=== PATIENT | male | born 1945 | race Caucasian/White ===

== ENCOUNTER 2019-11-17 17:03 | Inpatient (IN) | payer MEDICARE, OTHER ==
[~2019-11-17] VITALS: Ht 162.6 cm; Wt 71.7 kg
[~2019-11-17 17:03] MED LIST: ASPIRIN-LOW81 MG ORAL; ATORVASTATIN CA80 MG ORAL; CARVEDILOL6.25 MG ORAL; FERROUS SULFAT325 M2 ORAL; FUROSEMIDE20 MG IV; LISINOPRIL5 MG ORAL; NICODERM CQ1 EAC3 TD
--- NOTE | 2019-11-17 17:14 | Emergency Room Report ---
History of Present Illness General Chief Complaint: Abdominal Pain Source: Patient, Medical Record, EMS Present Illness HPI Patient is a 74-year-old male who presents after increased epigastric pain. Reports having prior history of coronary disease and had prior stent placement many years ago. He states that he is a smoker. He is normally able to ambulate. Pain had onset this morning. Reports having negative coronavirus test approximately 8 days ago. Patient was sent in from [facility]. His primary care physician is Dr. Danish Barnes. Allergies: Coded Allergies: No Known Allergies (Unverified , 05/17/14) COVID-19 Screening Contact w/high risk pt: No Recent Travel to affected area: No Experienced COVID-19 symptoms?: No COVID-19 Testing performed LEHR OPERATOR: No Patient History Past Medical History: see triage record Reviewed Nursing Documentation: PMH: Agreed; PSxH: Agreed Nursing Documentation-PMH Past Medical History: No History, Except For Hx Hypertension: Yes Hx Diabetes: Yes Hx Cancer: No Hx Gastrointestinal Problems: Yes - colonic AVM Hx Neurological Problems: No Review of Systems All Other Systems: negative except mentioned in HPI Physical Exam Vital Signs Date Time Temp Pulse Resp B/P (MAP) Pulse Ox O2 Delivery O2 Flow Rate FiO2 11/17/19 16:59 98.4 88 18 145/88 (107) 98 Room Air Sp02 EP Interpretation: reviewed, normal General Appearance: normal inspection, well appearing, no apparent distress, alert, GCS 15, non-toxic, Chronically Ill Head: atraumatic ENT: normal ENT inspection, hearing grossly normal, normal voice Neck: normal inspection, full range of motion, supple, no bony tend Respiratory: normal inspection, lungs clear, normal breath sounds, no respiratory distress, no retraction, no wheezing Cardiovascular #1: regular rate, rhythm, no edema Gastrointestinal: normal inspection, normal bowel sounds, non tender, soft, no guarding, no hernia Genitourinary: no CVA tenderness Musculoskeletal: normal inspection, back normal, normal range of motion Neurologic: alert, motor strength/tone normal, inker machine III-XII nml as tested, oriented x3, responsive, speech normal, normal inspection Psychiatric: normal inspection, judgement/insight normal, mood/affect normal Skin: no rash Medical Decision Making Diagnostic Impression: Primary Impression: Abdominal pain Additional Impressions: Gastritis CAD (coronary artery disease) ER Course Patient presented for abdominal pain. Differential diagnosis include was not limited to inferior [place], coronavirus infection, gastritis, peptic ulcer disease among others. Because of complexity of patient's case laboratory tests and imaging studies were ordered. Patient was noted to have some epigastric pain and prior history of H. pylori gastritis. Patient was given IV acid blockers as well as pain medications.EKG interpreted by me showed normal sinus rhythm with a rate of [address] or T wave changes.Patient was discussed with Dr. Danish Barnes.. He requested the patient be admitted to Dr. Stalin Armendariz. Dr. Armendariz was contacted and agreed to accept the patient and requested a rapid coronavirus test. Patient's coronavirus testing was negative. CT imaging of the abdomen pelvisFindings: Lung bases: Mild basilar atelectasis. Distal heart and esophagus: Calcifications at the aortic root, right coronary calcification. Nondistended stomach. Liver: 2 mm nonspecific hypodensity in the right lobe image 4/23, questionable low-density left lobe medial segment inferiorly image 4/27 is probably artifactual. Right kidney medial mid pole, left kidney upper pole cyst. Scarring and calcification in the left kidney upper pole. Endovascular stent at the region of left renal artery. Moderately enlarged prostate measuring 6.2 x 7.6 x 7.4 cm. Lumbar spine degenerative changes. Labs Test 11/17/19 17:20 White Blood Count 8.3 K/UL (4.8-10.8) Red Blood Count 4.55 M/UL (4.70-6.10) Hemoglobin 13.3 G/DL (14.2-18.0) Hematocrit 43.6 % (42.0-52.0) Mean Corpuscular Volume 96 FL (80-99) Mean Corpuscular Hemoglobin 29.3 PG (27.0-31.0) Mean Corpuscular Hemoglobin Concent 30.6 G/DL (32.0-36.0) Red Cell Distribution Width 14.1 % (11.6-14.8) Platelet Count 133 K/UL (150-450) Mean Platelet Volume 7.2 FL (6.5-10.1) Neutrophils (%) (Auto) 64.5 % (45.0-75.0) Lymphocytes (%) (Auto) 25.3 % (20.0-45.0) Monocytes (%) (Auto) 8.9 % (1.0-10.0) Eosinophils (%) (Auto) 0.6 % (0.0-3.0) Basophils (%) (Auto) 0.7 % (0.0-2.0) Prothrombin Time 11.4 SEC (9.30-11.50) Prothromb Time International Ratio 1.0 (0.9-1.1) Activated Partial Thromboplast Time 25 SEC (23-33) Sodium Level 140 MMOL/L (136-145) Potassium Level 4.5 MMOL/L (3.5-5.1) Chloride Level 104 MMOL/L (98-107) Carbon Dioxide Level 30 MMOL/L (21-32) Anion Gap 6 mmol/L (5-15) Blood Urea Nitrogen 29 mg/dL (7-18) Creatinine 1.6 MG/DL (0.55-1.30) Estimat Glomerular Filtration Rate 42.2 mL/min (>60) Glucose Level 155 MG/DL (74-106) Calcium Level 8.5 MG/DL (8.5-10.1) Total Bilirubin 0.2 MG/DL (0.2-1.0) Aspartate Amino Transf (AST/SGOT) 20 U/L (15-37) Alanine Aminotransferase (ALT/SGPT) 25 U/L (12-78) Alkaline Phosphatase 67 U/L (46-116) Ammonia < 10 umol/L (11-32) Troponin I 0.044 ng/mL (0.000-0.056) Total Protein 6.4 G/DL (6.4-8.2) Albumin 3.4 G/DL (3.4-5.0) Globulin 3.0 g/dL Albumin/Globulin Ratio 1.1 (1.0-2.7) Lipase 307 U/L (73-393) EKG Diagnostic Results Rate: normal Rhythm: NSR ST Segments: no acute changes Last Vital Signs Date Time Temp Pulse Resp B/P (MAP) Pulse Ox O2 Delivery O2 Flow Rate FiO2 11/17/19 16:59 98.4 88 18 145/88 (107) 98 Room Air Status: unchanged Disposition: ADMITTED INPATIENT Condition: Stable Oneal Currie MD Nov 17, 2019 17:14
[2019-11-17] MEDS ORDERED: Omnipaque-300 100ml vial INJ PRN (17:15)
[2019-11-17] MEDS ORDERED: Morphine Sulfate 2mg/ml Inj(IV/IM USE ONLY) IVP ONE (17:15)
[2019-11-17 17:30] VITALS: BP 143/47
[2019-11-17 17:37] LABS: BASOPHILS % (AUTO) 0.7 % (0.0-2.0); EOSINOPHILS % (AUTO) 0.6 % (0.0-3.0); HEMATOCRIT 43.6 % (42.0-52.0); HEMOGLOBIN 13.3 G/DL (14.2-18.0); LYMPHOCYTES % (AUTO) 25.3 % (20.0-45.0); MEAN CORPUSCULAR VOLUME 96 FL (80-99); MONOCYTES % (AUTO) 8.9 % (1.0-10.0); NEUTROPHILS % (AUTO) 64.5 % (45.0-75.0); PLATELET COUNT 133 K/UL (150-450); RED BLOOD COUNT 4.55 M/UL (4.70-6.10); RED CELL DISTRIBUTION WIDTH 14.1 % (11.6-14.8); WHITE BLOOD COUNT 8.3 K/UL (4.8-10.8)
[2019-11-17 17:45] LABS: ANION GAP 6 mmol/L (5-15); BLOOD UREA NITROGEN 29 mg/dL (7-18); CALCIUM 8.5 MG/DL (8.5-10.1); CARBON DIOXIDE 30 MMOL/L (21-32); CHLORIDE 104 MMOL/L (98-107); CREATININE 1.6 MG/DL (0.55-1.30); POTASSIUM 4.5 MMOL/L (3.5-5.1); SODIUM 140 MMOL/L (136-145)
[2019-11-17] MEDS ORDERED: BISACODYL10 M1 RC (17:47)
[2019-11-17] MEDS ORDERED: FAMOTIDINE20 MG ORAL (17:47)
[2019-11-17] MEDS ORDERED: ACETAMINOPHEN325 M1 ORAL (17:47)
[2019-11-17] MEDS ORDERED: VIBRAMYCIN100 MG ORAL (17:47)
[2019-11-17] MEDS ORDERED: NEPHROVITE1 TAB ORAL (17:47)
[2019-11-17] MEDS ORDERED: JANUVIA100 MG ORAL (17:47)
[2019-11-17] MEDS ORDERED: FOLIC ACID1 MG ORAL (17:47)
[2019-11-17 17:48] LABS: AMMONIA < 10 umol/L (11-32)
[2019-11-17 17:50] LABS: ALANINE AMINOTRANSFERASE 25 U/L (12-78); ALBUMIN 3.4 G/DL (3.4-5.0); ALBUMIN/GLOBULIN RATIO 1.1 (1.0-2.7); ALKALINE PHOSPHATASE 67 U/L (46-116); ASPARTATE AMINO TRANSFERASE 20 U/L (15-37); BILIRUBIN,TOTAL 0.2 MG/DL (0.2-1.0)
[2019-11-17 19:32] VITALS: BP 157/62
[2019-11-17 19:51] LABS: APPEARANCE,URINE CLEAR; BILIRUBIN, URINE NEGATIVE (NEGATIVE); COLOR,URINE PALE YELLOW; GLUCOSE, URINE (UA) NEGATIVE (NEGATIVE); KETONES,URINE NEGATIVE (NEGATIVE); LEUKOCYTE ESTERASE ,URINE NEGATIVE (NEGATIVE); NITRITE,URINE NEGATIVE (NEGATIVE); PH,URINE 6 (4.5-8.0); PROTEIN,URINE 3+ (NEGATIVE); UROBILINOGEN,URINE NORMAL MG/DL (0.0-1.0)
--- NOTE | 2019-11-17 21:54 | Diagnostic Imaging Report ---
CT abdomen and pelvis with contrast History: Abdominal pain Technique: Axial contrast-enhanced CT of the abdomen and pelvis with coronal, sagittal reformatted images. 99 cc Omnipaque 300 IV contrast. CTDI is 5.6 mGy and DLP is 299.5 mGy-cm. Technique more: One or more of the following dose reduction techniques were used: automated exposure control, adjustment of the mA and/or kV according to patient size, use of iterative reconstruction technique. Comparison: None Findings: Lung bases: Mild basilar atelectasis. Distal heart and esophagus: Calcifications at the aortic root, right coronary calcification. Nondistended stomach. Liver: 2 mm nonspecific hypodensity in the right lobe image 09/22, questionable low-density left lobe medial segment inferiorly image 09/26 is probably artifactual. Right kidney medial mid pole, left kidney upper pole cyst. Scarring and calcification in the left kidney upper pole. Endovascular stent at the region of left renal artery. Moderately enlarged prostate measuring 6.2 x 7.6 x 7.4 cm. Lumbar spine degenerative changes.
[2019-11-17 22:15] VITALS: BP 172/75
[2019-11-17] MEDS: Carvedilol 6.25mg Tab ORAL SCH (23:09)
[2019-11-18] VITALS: BP 142/75
[2019-11-18 04:00] VITALS: BP 149/82
[2019-11-18 04:40] LABS: EOSINOPHILS % (AUTO) 0.9 % (0.0-3.0); HEMATOCRIT 41.6 % (42.0-52.0); HEMOGLOBIN 12.9 G/DL (14.2-18.0); LYMPHOCYTES % (AUTO) 29.7 % (20.0-45.0); MEAN CORPUSCULAR VOLUME 96 FL (80-99); MONOCYTES % (AUTO) 13.1 % (1.0-10.0); NEUTROPHILS % (AUTO) 55.2 % (45.0-75.0); PLATELET COUNT 116 K/UL (150-450); RED BLOOD COUNT 4.33 M/UL (4.70-6.10); RED CELL DISTRIBUTION WIDTH 13.4 % (11.6-14.8)
[2019-11-18 05:11] LABS: ANION GAP 7 mmol/L (5-15); BLOOD UREA NITROGEN 24 mg/dL (7-18); CALCIUM 8.4 MG/DL (8.5-10.1); CARBON DIOXIDE 28 MMOL/L (21-32); CHLORIDE 106 MMOL/L (98-107); CREATININE 1.4 MG/DL (0.55-1.30); POTASSIUM 4.2 MMOL/L (3.5-5.1); SODIUM 141 MMOL/L (136-145)
[2019-11-18] MEDS: NovoLOG Insulin Flexpen SUBQ SCH ×4 (05:47→20:30)
[2019-11-18 08:00] VITALS: BP 146/63
[2019-11-18] MEDS: Aspirin EC 81mg tab ORAL SCH (08:32)
[2019-11-18] MEDS: Carvedilol 6.25mg Tab ORAL SCH ×2 (08:33→20:29)
[2019-11-18] MEDS: Lisinopril 2.5mg tab ORAL SCH (08:33)
[2019-11-18] MEDS: Nephrovite tab (Rena-Vite) ORAL SCH (08:33)
[2019-11-18] MEDS ORDERED: Heparin 5000 units/ml inj SUBQ SCH (09:00)
[2019-11-18] MEDS ORDERED: Nephrovite tab (Rena-Vite) ORAL SCH (09:00)
[2019-11-18 12:00] VITALS: BP 131/58
--- NOTE | 2019-11-18 12:06 | Diagnostic Imaging Report ---
Procedure: XRAY Chest 1v Reason for study: Chest and abdominal pain. Comparison films: None. FINDINGS: A single one view chest is obtained. Vascularity is normal. Hazy atelectasis is noted in the lung bases. Cardiac and mediastinal silhouette are within normal limits. CP angles are sharp. The bony thorax appear unremarkable. IMPRESSION: Mild hazy basilar atelectasis.
--- NOTE | 2019-11-18 13:15 | History and Physical Report ---
DATE OF ADMISSION: 11/17/2019 HISTORY OF PRESENT ILLNESS: This is a 74-year-old resident from an assisted living facility, who was admitted to the hospital with abdominal pain. The patient reports history of CAD and previously had a cardiac stent placement, came to hospital with abdominal pain. He is an active smoker. The patient states that he has undergone a negative coronavirus test 8 days ago. The patient was tested yesterday. Rapid PCR is negative. He also underwent a Primex PCR, which was also negative. At this time, the patient states he is better. He apparently was able to consume his diet. MEDICATIONS: The patient's list of home medications include Crestor 5 mg daily, aspirin 81 mg daily, Januvia 100 mg daily, folic acid 1 mg daily, Nephro-Shahana one daily, prednisone 10 mg daily, doxycycline 100 mg one tablet twice a day, and Pepcid 20 mg daily. He is on eyedrops. He is on Flomax 0.4 mg one p.o. twice a day. He is on dutasteride 0.5 mg once a day. He is also on breathing treatments. He also takes Symbicort, Tylenol, Colace, milk of magnesia. PAST MEDICAL HISTORY: Notable for hypertension, hyperlipidemia, BPH, COPD. There is history of diabetes mellitus as well as colonic AVM. PAST SURGICAL HISTORY: Surgeries are none reported. REVIEW OF SYSTEMS: Denies any headaches, hematemesis, melena, hematochezia, night sweats, or weight loss. PHYSICAL EXAMINATION: GENERAL: Reveals a 74-year-old male. VITAL SIGNS: Blood pressure 140/60, heart rate 84, respirations . He is afebrile. HEENT: Unremarkable. LUNGS: Clear breath sounds bilaterally. ABDOMEN: Soft. EXTREMITIES: There is no edema. NEUROLOGIC: Nonfocal. LABORATORY DATA: Lab testing shows normal CBC and BMP with hemoglobin 12.9, creatinine 1.4. Coags are negative. Urinalysis is negative. IMAGING STUDIES: CT of the abdomen and pelvis was obtained, which showed mild basilar atelectasis. No other abnormalities noted except for BPH. IMPRESSION: 1. Abdominal pain, etiology uncertain. 2. COPD. 3. Hypertension. 4. Diabetes mellitus. 5. BPH. DISCUSSION: Admit to the hospital. I will continue current medications. Provide diet. Request GI consultation. Insulin sliding scale. We will follow carefully. Etiology of prednisone usage is unknown. Stalin Armendariz M.D. DR: CATRACHO JOB#: [id number] CC:
[2019-11-18 16:00] VITALS: BP 120/82
--- NOTE | 2019-11-18 16:00 | Consultation ---
DATE OF CONSULTATION: 11/18/2019 CONSULTING PHYSICIAN: Edd Byers MD. CHIEF COMPLAINT: Abdominal pain. HISTORY OF PRESENT ILLNESS: This is a very pleasant 74-year-old male with past medical history of H. pylori gastritis, status post treatment. He was in his normal state of health, started having severe abdominal pain, chest pain, shoulder pain for which he came to the hospital. This morning, he stated his pain is approved. No nausea. No vomiting. No dysphagia. No odynophagia. No melena. No hematochezia. Last BM was today. PAST MEDICAL HISTORY: 1. Diabetes. 2. History of coronary artery disease, status post cardiac stent placement. 3. History of H. pylori positive gastritis. 4. Hypercholesterolemia. 5. Hypertension. 6. History of colonic polyps. 7. Hemorrhoids. Last endoscopy and colonoscopy in 2013. 8. BPH. 9. Tobacco abuse. ALLERGIES: No known drug allergies. MEDICATIONS: Please see medication reconciliation list. SOCIAL HISTORY: The patient is to smoke cigarettes. Denies any alcohol or IV drug abuse. FAMILY HISTORY: Noncontributory. REVIEW OF SYSTEMS: A 10-point review of systems was performed and pertinent positives in the HPI. PHYSICAL EXAMINATION: VITAL SIGNS: Temperature is 98.4, pulse 83, respirations 19, blood pressure is 140/63. HEENT: Normocephalic and atraumatic. Sclerae anicteric. NECK: Supple. No evidence of obvious lymphadenopathy. CARDIOVASCULAR: Regular rate and rhythm. Plus S1-S2. LUNGS: Clear to auscultation bilaterally. ABDOMEN: Positive bowel sounds. Soft and nontender. No rebound. No guarding. No peritoneal sign. EXTREMITIES: No cyanosis, no clubbing, no edema. LABORATORY DATA: White count 7, hemoglobin 12, hematocrit 41, platelet count is 116,000. Sodium 141, potassium 4.2, BUN is 24, creatinine is 1.4. CT of the abdomen and pelvis that did not show any acute intra-abdominal process. There was evidence of prostate enlargement. ASSESSMENT AND PLAN: This is a 74-year-old male with chest pain, shoulder pain, abdominal pain, which seems to be resolving. CT is nondiagnostic. Laboratories, the only thing is thrombocytopenia with platelets of 116,000. The patient is a tobacco user. Plan, we will be to do an abdominal ultrasound for evaluation of the liver disease. The patient will need an outpatient followup for endoscopy and colonoscopy given the last one was done in 2013. Meanwhile, the patient is on an 1800 ADA diet. We will monitor. I want to thank, Dr. Armendariz for this kind referral. Edd Byers M.D. DR: ERNESTO JOB#: [id number] CC: Stalin Armendariz MD.; Fax#: [phone]
--- NOTE | 2019-11-18 16:03 | Diagnostic Imaging Report ---
EXAM: ULTRASOUND US ABD Complete CLINICAL HISTORY: Reason For Exam: ABD PAIN. COMPARISON: None TECHNIQUE: Ultrasound examination of the abdomen includes grayscale images, and color and spectral doppler analysis. FINDINGS: The liver and spleen are homogeneous. Small amount of sludge noted in the gallbladder. Common bile duct measures 3 mm. The pancreas is unremarkable to the extent visualized. There are cysts noted in both kidneys. Cortical scarring noted at the upper pole of the left kidney. No hydronephrosis bilaterally. Aorta and cava are within normal limits. IMPRESSION: BILATERAL RENAL CYSTS. CORTICAL SCARRING UPPER POLE LEFT KIDNEY. POSSIBLE SMALL AMOUNT OF SLUDGE IN THE GALLBLADDER.
[2019-11-18 20:00] VITALS: BP 116/52
[2019-11-18] MEDS: Heparin 5000 units/ml inj SUBQ SCH (20:30)
[2019-11-18] MEDS ORDERED: Tamsulosin 0.4mg cap ORAL SCH (21:00)
[2019-11-18] MEDS ORDERED: Atorvastatin 80mg tab ORAL SCH (21:00)
[2019-11-19] VITALS: BP 127/73
[2019-11-19 04:00] VITALS: BP 119/44
[2019-11-19] MEDS: NovoLOG Insulin Flexpen SUBQ SCH ×2 (05:42→11:30)
[2019-11-19 06:16] LABS: BASOPHILS % (AUTO) 0.6 % (0.0-2.0); EOSINOPHILS % (AUTO) 1.2 % (0.0-3.0); HEMATOCRIT 39.1 % (42.0-52.0); LYMPHOCYTES % (AUTO) 45.9 % (20.0-45.0); MEAN CORPUSCULAR VOLUME 96 FL (80-99); MONOCYTES % (AUTO) 14.9 % (1.0-10.0); NEUTROPHILS % (AUTO) 37.4 % (45.0-75.0); PLATELET COUNT 106 K/UL (150-450); RED BLOOD COUNT 4.06 M/UL (4.70-6.10); RED CELL DISTRIBUTION WIDTH 13.9 % (11.6-14.8); WHITE BLOOD COUNT 6.2 K/UL (4.8-10.8)
[2019-11-19 06:29] LABS: ALANINE AMINOTRANSFERASE 19 U/L (12-78); ALBUMIN 2.8 G/DL (3.4-5.0); ALKALINE PHOSPHATASE 52 U/L (46-116); AMYLASE 140 U/L (25-115); ANION GAP 6 mmol/L (5-15); ASPARTATE AMINO TRANSFERASE 20 U/L (15-37); BILIRUBIN,TOTAL 0.2 MG/DL (0.2-1.0); BLOOD UREA NITROGEN 36 mg/dL (7-18); CALCIUM 8.2 MG/DL (8.5-10.1); CARBON DIOXIDE 27 MMOL/L (21-32); CHLORIDE 107 MMOL/L (98-107); CREATININE 1.8 MG/DL (0.55-1.30); POTASSIUM 4.3 MMOL/L (3.5-5.1); SODIUM 140 MMOL/L (136-145)
--- NOTE | 2019-11-19 07:16 | Pulmonology Progress Note ---
Subjective Interval Events: Feeling better Constitutional: Reports: no symptoms HEENT: Repors: no symptoms Respiratory: Reports: no symptoms Cardiovascular: Reports: no symptoms Gastrointestinal/Abdominal: Reports: no symptoms Genitourinary: Reports: no symptoms Allergies: Coded Allergies: No Known Allergies (Unverified , 05/17/14) Objective Last 24 Hour Vital Signs Date Time Temp Pulse Resp B/P (MAP) Pulse Ox O2 Delivery O2 Flow Rate FiO2 11/19/19 06:37 98.1 11/19/19 04:00 98.1 75 19 119/44 (69) 95 11/19/19 03:35 72 11/19/19 00:00 99.0 78 19 127/73 (91) 98 11/18/19 23:46 76 11/18/19 21:00 Room Air 11/18/19 20:29 70 116/50 11/18/19 20:00 97.9 70 20 116/52 (73) 98 11/18/19 19:40 63 11/18/19 16:00 99.5 69 19 120/82 (95) 95 11/18/19 16:00 70 11/18/19 12:00 99.1 61 19 131/58 (82) 95 11/18/19 12:00 67 11/18/19 09:00 Room Air 11/18/19 08:33 146/63 11/18/19 08:33 83 146/63 11/18/19 08:00 98.4 83 19 146/63 (90) 95 11/18/19 08:00 75 Intake and Output 11/18/19 11/19/19 19:00 07:00 Intake Total 480 ml Balance 480 ml Intake Oral 480 ml # Voids 3 3 General Appearance: no acute distress HEENT: normocephalic Respiratory: chest wall non-tender, normal breath sounds Cardiovascular: normal peripheral pulses Abdomen: normal bowel sounds Microbiology Date/Time Source Procedure Growth Status 11/17/19 19:22 Nasopharynx SARS-CoV-2 RdRp Gene Assay - Final Complete 11/17/19 17:20 Nasopharynx Coronavirus COVID-19 PCR (JERMAINE) - Final Complete 11/17/19 18:55 Rectal Mucosa Received Laboratory Tests 11/19/19 05:40: White Blood Count 6.2, Red Blood Count 4.06L, Hemoglobin 12.0L, Hematocrit 39.1L , Mean Corpuscular Volume 96, Mean Corpuscular Hemoglobin 29.6, Mean Corpuscular Hemoglobin Concent 30.7L, Red Cell Distribution Width 13.9, Platelet Count 106L, Mean Platelet Volume 8.5, Neutrophils (%) (Auto) 37.4L, Lymphocytes (%) (Auto) 45.9H, Monocytes (%) (Auto) 14.9H, Eosinophils (%) (Auto ) 1.2, Basophils (%) (Auto) 0.6, Sodium Level 140, Potassium Level 4.3, Chloride Level 107, Carbon Dioxide Level 27, Anion Gap 6, Blood Urea Nitrogen 36H, Creatinine 1.8H, Estimat Glomerular Filtration Rate 36.9, Glucose Level 108H, Calcium Level 8.2L, Iron Level [Pending], Unsaturated Iron Binding [ Pending], Total Bilirubin 0.2, Aspartate Amino Transf (AST/SGOT) 20, Alanine Aminotransferase (ALT/SGPT) 19, Alkaline Phosphatase 52, Total Protein 5.7L, Albumin 2.8L, Globulin 2.9, Albumin/Globulin Ratio 1.0, Amylase Level 140H, Lipase 194, Vitamin B12 Level [Pending] Current Medications Medications (Trade) Dose Ordered Sig/Mark Route PRN Reason Start Time Stop Time Status Last Admin Dose Admin Acetaminophen (Tylenol) 650 mg Q6H PRN ORAL For Pain 11/17/19 23:00 12/17/19 22:59 11/19/19 06:07 Aspirin (Ecotrin) 81 mg DAILY ORAL 11/18/19 09:00 01/02/20 08:59 11/18/19 08:32 Atorvastatin Calcium (Lipitor) 80 mg BEDTIME ORAL 11/18/19 21:00 02/16/20 20:59 11/18/19 20:29 Carvedilol (Coreg) 6.25 mg EVERY 12 HOURS ORAL 11/17/19 23:00 12/17/19 22:59 11/18/19 20:29 Dextrose (Dextrose 50%) 25 ml Q30M PRN IV Hypoglycemia 11/17/19 23:00 02/15/20 22:59 Dextrose (Dextrose 50%) 50 ml Q30M PRN IV Hypoglycemia 11/17/19 23:00 02/15/20 22:59 Famotidine (Pepcid) 20 mg DAILY ORAL 11/18/19 09:00 02/16/20 08:59 11/18/19 08:32 Folic Acid (Folate) 1 mg DAILY ORAL 11/18/19 09:00 12/18/19 08:59 11/18/19 08:32 Heparin Sodium (Porcine) (Heparin 5000 units/ml) 5,000 units EVERY 12 HOURS SUBQ 11/18/19 21:00 01/02/20 08:59 11/18/19 20:30 Insulin Aspart (NovoLOG) BEFORE MEALS AND HS SUBQ 11/18/19 06:30 02/16/20 06:29 11/18/19 17:31 Iohexol (OMNIPAQUE-300 100ml) 100 ml NOW PRN INJ Radiology Procedure 11/17/19 17:15 11/19/19 17:07 Lisinopril (ZestriL) 5 mg DAILY ORAL 11/18/19 09:00 12/18/19 08:59 11/18/19 08:33 Prednisone (predniSONE) 10 mg DAILY ORAL 11/18/19 09:00 12/18/19 08:59 11/18/19 08:32 Sitagliptin Phosphate (Januvia) 100 mg DAILY ORAL 11/18/19 09:00 12/18/19 08:59 11/18/19 08:33 Tamsulosin HCl (Flomax) 0.4 mg BEDTIME ORAL 11/18/19 21:00 12/18/19 20:59 11/18/19 20:29 Vitamin B Complex/ Vit C/Folic Acid (Nephrovite) 1 tab DAILY ORAL 11/18/19 09:00 12/18/19 08:59 11/18/19 08:33 Assessment/Plan Assessment/Plan IMPRESSION: 1. Abdominal pain, etiology uncertain. CT abd and US negative 2. COPD. 3. Hypertension. 4. Diabetes mellitus. 5. BPH. DISCUSSION: Continue current medications. Regular diet. Noted GI consultation. Insulin sliding scale. Likely dc back to assisted living today Fabricio Jj Omar Syed MD Nov 19, 2019 07:15
[2019-11-19 07:26] LABS: % IRON SATURATION 14 % (15-50); IRON 28 ug/dL (50-175); TOTAL IRON BINDING CAPACITY 199 ug/dL (250-450)
[2019-11-19 08:00] VITALS: BP 133/62
[2019-11-19] MEDS ORDERED: sitaGLIPtin 50mg tab ORAL SCH (09:24)
[2019-11-19] MEDS: Carvedilol 6.25mg Tab ORAL SCH (09:39)
[2019-11-19] MEDS: Aspirin EC 81mg tab ORAL SCH (09:40)
[2019-11-19] MEDS: Nephrovite tab (Rena-Vite) ORAL SCH (09:40)
[2019-11-19] MEDS: Lisinopril 2.5mg tab ORAL SCH (09:40)
[2019-11-19] MEDS: Heparin 5000 units/ml inj SUBQ SCH (09:41)
[2019-11-19 12:00] VITALS: BP 141/68
--- NOTE | 2019-11-19 13:33 | General Progress Note ---
Assessment/Plan Problem List: (1) Hypercholesteremia ICD Codes: E78.0 - Hypercholesteremia SNOMED: 50852353 (2) Diabetes ICD Codes: E11.9 - Diabetes SNOMED: 75168059 (3) HTN (hypertension) ICD Codes: I10 - HTN (hypertension) SNOMED: 87986051 (4) Helicobacter pylori gastritis ICD Codes: B96.81 - Helicobacter pylori gastritis SNOMED: 15060656 (5) AVM (arteriovenous malformation) of colon ICD Codes: Q27.33 - AVM (arteriovenous malformation) of colon SNOMED: 842423265 (6) CAD (coronary artery disease) ICD Codes: I25.10 - CAD (coronary artery disease) SNOMED: 187612342 Assessment/Plan: abd pain is much better going home needs out patient fu for colonoscopy Subjective ROS Limited/Unobtainable: Yes Allergies: Coded Allergies: No Known Allergies (Unverified , 05/17/14) Objective Last 24 Hour Vital Signs Date Time Temp Pulse Resp B/P (MAP) Pulse Ox O2 Delivery O2 Flow Rate FiO2 11/19/19 12:00 97.9 71 18 141/68 (92) 96 11/19/19 09:40 133/62 11/19/19 09:39 64 133/62 11/19/19 09:00 Room Air 11/19/19 08:00 97.7 64 18 133/62 (85) 95 11/19/19 07:46 60 11/19/19 06:37 98.1 11/19/19 04:00 98.1 75 19 119/44 (69) 95 11/19/19 03:35 72 11/19/19 00:00 99.0 78 19 127/73 (91) 98 11/18/19 23:46 76 11/18/19 21:00 Room Air 11/18/19 20:29 70 116/50 11/18/19 20:00 97.9 70 20 116/52 (73) 98 11/18/19 19:40 63 11/18/19 16:00 99.5 69 19 120/82 (95) 95 11/18/19 16:00 70 Intake and Output 11/18/19 11/19/19 19:00 07:00 Intake Total 480 ml Balance 480 ml Intake Oral 480 ml # Voids 3 3 Laboratory Tests 11/19/19 05:40: White Blood Count 6.2, Red Blood Count 4.06L, Hemoglobin 12.0L, Hematocrit 39.1L , Mean Corpuscular Volume 96, Mean Corpuscular Hemoglobin 29.6, Mean Corpuscular Hemoglobin Concent 30.7L, Red Cell Distribution Width 13.9, Platelet Count 106L, Mean Platelet Volume 8.5, Neutrophils (%) (Auto) 37.4L, Lymphocytes (%) (Auto) 45.9H, Monocytes (%) (Auto) 14.9H, Eosinophils (%) (Auto ) 1.2, Basophils (%) (Auto) 0.6, Sodium Level 140, Potassium Level 4.3, Chloride Level 107, Carbon Dioxide Level 27, Anion Gap 6, Blood Urea Nitrogen 36H, Creatinine 1.8H, Estimat Glomerular Filtration Rate 36.9, Glucose Level 108H, Calcium Level 8.2L, Iron Level 28L, Total Iron Binding Capacity 199L, Percent Iron Saturation 14L, Unsaturated Iron Binding 171, Total Bilirubin 0.2, Aspartate Amino Transf (AST/SGOT) 20, Alanine Aminotransferase (ALT/SGPT) 19, Alkaline Phosphatase 52, Total Protein 5.7L, Albumin 2.8L, Globulin 2.9, Albumin /Globulin Ratio 1.0, Amylase Level 140H, Lipase 194, Vitamin B12 Level 538 Height (Feet): 5 Height (Inches): 4.00 Weight (Pounds): 158 General Appearance: alert EENT: normal ENT inspection Neck: supple Cardiovascular: normal rate Respiratory/Chest: decreased breath sounds Abdomen: normal bowel sounds, non tender, soft Extremities: non-tender Edd Byers MD Nov 19, 2019 13:33
--- NOTE | 2019-11-21 14:34 | Discharge Summary ---
Discharge Summary Discharge Summary _ DATE OF ADMISSION: 11/17/2019 DATE OF DISCHARGE: 11/19/2019 DISCHARGED BY: Dr. Neda Armendariz CONSULTANTS: Dr. Gary Byers BRIEF HOSPITAL COURSE: Patient is a 74-year-old male, a resident from an assisted living facility, who was admitted to the hospital due to abdominal pain. Patient reported history of CAD and previously had a cardiac stent placed. He is an active smoker. He presented to ED due to abdominal pain. He had prior COVID-19 testing that were negative. He has medical history notable for hypertension, hyperlipidemia, BPH , COPD, diabetes mellitus as well as colonic AVM. Upon evaluation at ED, vital signs were stable. Blood work did not show any leukocytosis. Hemoglobin hematocrit were stable. Electrolytes were normal. BUN 29 and creatinine 1.6. Glucose 155. LFTs were normal. Lipase normal. Troponin negative. EKG was in normal sinus rhythm with no acute changes. CT of the abdomen and pelvis with contrast showed mild basilar atelectasis on the lung. Nondistended stomach. Right and left kidney cyst. Moderately enlarged prostate. Chest x-ray showed mild hazy basilar atelectasis. He was given Zofran as well as pain medication. He was then admitted for evaluation of abdominal pain. He underwent GI evaluation. Patient denied any vomiting. No dysphagia. No odynophagia. No melena. No hematochezia. CT scan of the abdomen was nondiagnostic. He was recommended outpatient endoscopy and colonoscopy given last one was done in 2013. Abdominal ultrasound showed homogeneous liver and spleen. Unremarkable pancreas. Bilateral renal cyst. Possible small amount of sludge in the gallbladder. Abdominal pain resolved. Patient was tolerating diet. CT and abdominal ultrasound were negative. Patient was cleared for discharge back to assisted living, to follow-up as outpatient. FINAL DIAGNOSES: Abdominal pain, etiology uncertain COPD Hypertension Diabetes mellitus BPH DISPOSITION: DC back to assisted living. DISCHARGE MEDICATIONS: Refer to Discharge Medication List. DISCHARGE INSTRUCTIONS: Follow-up in a week. I have been assigned to complete a discharge summary on this account, I was not involved with the patient's management.--DION Boyce Jacqueline Robles NP Nov 21, 2019 14:34
== END 2019-11-19 13:00 | disposition home or self-care (01) | DRG 392 ==
LOC: EDBD 17:03 → EMR 17:37 → 2E 18:25 → EDBEDREQ 19:14 → 2E 19:38
DX: R10.9 Unspecified abdominal pain (principal); J44.9 Chronic obstructive pulmonary disease, unspecified; I10 Essential (primary) hypertension; N40.0 Benign prostatic hyperplasia without lower urinary tract symptoms; E11.9 Type 2 diabetes mellitus without complications; I25.10 Atherosclerotic heart disease of native coronary artery without angina pectoris; Z95.5 Presence of coronary angioplasty implant and graft; E78.00 Pure hypercholesterolemia, unspecified; Z86.010 Personal history of colon polyps; B96.81 Helicobacter pylori [H. pylori] as the cause of diseases classified elsewhere; K29.60 Other gastritis without bleeding; Q27.33 Arteriovenous malformation of digestive system vessel; N28.1 Cyst of kidney, acquired
CPT/HCPCS: 36415; 71045; 74177; 76700; 80048; 80053; 81003; 82140; 82150; 82607; 82962; 83540; 83550; 83690; 84484; 85025; 85610; 85730; 87081; 93005; 96374; 96375; 99285; J1815; J2405; U0002

== ENCOUNTER 2020-06-06 16:16 | Emergency (ER) | payer MEDICARE, OTHER ==
[~2020-06-06] VITALS: Ht 172.7 cm; Wt 69.4 kg
[~2020-06-06 16:16] MED LIST changes: +ACETAMINOPHEN325 M1 ORAL; +BISACODYL10 M1 RC; +FAMOTIDINE20 MG ORAL; +FOLIC ACID1 MG ORAL; +JANUVIA100 MG ORAL; +NEPHROVITE1 TAB ORAL; +VIBRAMYCIN100 MG ORAL
[2020-06-06 16:50] VITALS: BP 142/71
[2020-06-06] MEDS ORDERED: HYDROcodone/Acetamin 5/325 tab ORAL ONE (17:00)
--- NOTE | 2020-06-06 17:10 | Emergency Room Report ---
History of Present Illness General Chief Complaint: Chest Pain Source: Medical Record Present Illness HPI Disclaimer: Please note that this report is being documented using [employer] technology. This can lead to erroneous entry secondary to incorrect interpretation by the dictating instrument. HPI: 74-year-old male no reported past medical history presents from SNF secondary to multiple complaints. He states he has had chest, shoulder, head pain and neck pain for the past 5 days. Denies any trauma. Denies any shortness of breath fever or coughing. He has not taken any medication for the pain. He denies any medical history to me but is a chronic smoker. No vision changes. 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 COVID-19 Screening: Negative COVID-19 COVID-19 Testing Source: unknown Patient History Reviewed Nursing Documentation: PMH: Agreed; PSxH: Agreed Nursing Documentation-PMH Past Medical History: No History, Except For Hx Cardiac Problems: Yes Hx Hypertension: Yes Hx COPD: Yes Hx Diabetes: Yes Hx Cancer: No Hx Gastrointestinal Problems: Yes - colonic AVM Hx Neurological Problems: No Review of Systems All Other Systems: negative except mentioned in HPI Physical Exam Vital Signs Date Time Temp Pulse Resp B/P (MAP) Pulse Ox O2 Delivery O2 Flow Rate FiO2 06/06/20 16:32 98.1 67 16 142/71 (94) 97 Room Air Sp02 EP Interpretation: reviewed, normal General Appearance: well appearing, no apparent distress Head: normocephalic, atraumatic, other - Nontender to palpation Eyes: bilateral eye PERRL, bilateral eye EOMI ENT: hearing grossly normal, moist mucus membranes Neck: full range of motion, supple, other - No midline tenderness step-off or deformity Respiratory: lungs clear, normal breath sounds, no rhonchi, no respiratory distress, no retraction, no wheezing Cardiovascular #1: normal peripheral pulses, regular rate, rhythm, no murmur Gastrointestinal: non tender, soft, non-distended, no guarding Neurologic: alert, motor strength/tone normal, 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 There is no trauma. Vital signs were stable. Differential diagnosis included but not limited to migraine headache, tension headache, arthralgias, osteoarthritis, angina to name a few Clinical course-patient's EKG showed no ischemic changes. He has a history per chart review of heart disease however again his EKG was normal sinus rhythm. Troponin was negative. Laboratory studies otherwise unremarkable. Chest x-ray showed no acute pathology. I discussed the case with patient's primary doctor who recommended treatment with IV steroids Solu-Medrol due to patient's history of temporal arteritis. Patient otherwise nontoxic no acute distress will be d ischarged back to his assisted living. Labs - Laboratory Tests Test 06/06/20 17:10 White Blood Count 9.1 K/UL (4.8-10.8) Red Blood Count 4.26 M/UL (4.70-6.10) L Hemoglobin 13.1 G/DL (14.2-18.0) L Hematocrit 41.1 % (42.0-52.0) L Mean Corpuscular Volume 97 FL (80-99) Mean Corpuscular Hemoglobin 30.7 PG (27.0-31.0) Mean Corpuscular Hemoglobin Concent 31.8 G/DL (32.0-36.0) L Red Cell Distribution Width 14.4 % (11.6-14.8) Platelet Count 118 K/UL (150-450) L Mean Platelet Volume 7.5 FL (6.5-10.1) Neutrophils (%) (Auto) 60.6 % (45.0-75.0) Lymphocytes (%) (Auto) 26.9 % (20.0-45.0) Monocytes (%) (Auto) 10.5 % (1.0-10.0) H Eosinophils (%) (Auto) 0.3 % (0.0-3.0) Basophils (%) (Auto) 1.6 % (0.0-2.0) Sodium Level 139 MMOL/L (136-145) Potassium Level 4.8 MMOL/L (3.5-5.1) Chloride Level 107 MMOL/L (98-107) Carbon Dioxide Level 27 MMOL/L (21-32) Anion Gap 5 mmol/L (5-15) Blood Urea Nitrogen 34 mg/dL (7-18) H Creatinine 1.4 MG/DL (0.55-1.30) H Estimated Glomerular Filtration Rate 49.3 mL/min (>60) Glucose Level 104 MG/DL (74-106) Calcium Level 8.6 MG/DL (8.5-10.1) Total Bilirubin 0.2 MG/DL (0.2-1.0) Aspartate Amino Transferase (AST) 22 U/L (15-37) Alanine Aminotransferase (ALT) 24 U/L (12-78) Alkaline Phosphatase 56 U/L (46-116) Troponin I 0.033 ng/mL (0.000-0.056) Pro-B-Type Natriuretic Peptide 582 pg/mL (0-125) H Total Protein 5.9 G/DL (6.4-8.2) L Albumin 3.4 G/DL (3.4-5.0) Globulin 2.5 g/dL Albumin/Globulin Ratio 1.4 (1.0-2.7) On reevaluation: Patient resting comfortably Plan-discharge home follow-up PMD with return precautions EKG Diagnostic Results Rate: normal Rhythm: NSR ST Segments: no acute changes Last Vital Signs Date Time Temp Pulse Resp B/P (MAP) Pulse Ox O2 Delivery O2 Flow Rate FiO2 06/06/20 16:50 98.1 67 16 142/71 97 Room Air Status: improved Disposition: ASSISTED LIVING Condition: Improved Moises Uriostegui M.D. Jun 06, 2020 17:10
--- NOTE | 2020-06-06 17:30 | NUR ---
ED Nurse Note:pt. was BIBA from SNF with chest pain and headache, pt. is A/ox4 ambulatory with assistance, placed on technical services specialist, EKG done and blood sent to labs
[2020-06-06 17:44] LABS: BASOPHILS % (AUTO) 1.6 % (0.0-2.0); EOSINOPHILS % (AUTO) 0.3 % (0.0-3.0); HEMATOCRIT 41.1 % (42.0-52.0); HEMOGLOBIN 13.1 G/DL (14.2-18.0); LYMPHOCYTES % (AUTO) 26.9 % (20.0-45.0); MEAN CORPUSCULAR VOLUME 97 FL (80-99); MONOCYTES % (AUTO) 10.5 % (1.0-10.0); NEUTROPHILS % (AUTO) 60.6 % (45.0-75.0); PLATELET COUNT 118 K/UL (150-450); RED BLOOD COUNT 4.26 M/UL (4.70-6.10); RED CELL DISTRIBUTION WIDTH 14.4 % (11.6-14.8); WHITE BLOOD COUNT 9.1 K/UL (4.8-10.8)
[2020-06-06 17:51] LABS: CALCIUM 8.6 MG/DL (8.5-10.1); CREATININE 1.4 MG/DL (0.55-1.30); POTASSIUM 4.8 MMOL/L (3.5-5.1)
[2020-06-06 18:03] LABS: ALBUMIN 3.4 G/DL (3.4-5.0); ALBUMIN/GLOBULIN RATIO 1.4 (1.0-2.7); BILIRUBIN,TOTAL 0.2 MG/DL (0.2-1.0)
[2020-06-06] MEDS ORDERED: Solu-MEDROL 125mg Inj IVP ONE (18:30)
[2020-06-06 18:50] VITALS: BP 135/73
--- NOTE | 2020-06-06 19:15 | NUR ---
ED Nurse Note: Received report from YO Hudson. Pt laying in bed with eyes open, AAOx4 breathing even and unlabored. No complaints from pt at the moment. Denies chest pain. Pt is aware we are waiting for [facility] to transfer back to SNF.
--- NOTE | 2020-06-06 21:56 | NUR ---
ED Nurse Note: pt laying in bed with eyes closed. Arousable when name is called. No complaints from pt at the moment. Aware we are waiting for transportation back to SNF.
--- NOTE | 2020-06-06 22:10 | NUR ---
Note matt in EDM - 06/06/20 at 2210 by TREMAINE ED Nurse Note: Pt ambulated to restroom with steady liu
--- NOTE | 2020-06-06 22:10 | NUR ---
ED Nurse Note: ED Nurse Note: Pt ambulated to restroom with steady gait and back to bed, Pt is AAOx4, breathing even and unlabored. Fluids provided. No complaints from pt at the moment.
--- NOTE | 2020-06-06 22:22 | NUR ---
ED Nurse Note: Report given YO Lucas at [facility]. Please enter through [facility] entrance, [phone].
--- NOTE | 2020-06-06 22:45 | NUR ---
ED Nurse Note: [facility] Personelle at bedside. Report given.
[2020-06-06 22:48] VITALS: BP 143/78
--- NOTE | 2020-06-06 22:48 | NUR ---
ER DISCHARGE NOTE: Patient is cleared to be discharged per ERMD, pt is aox4, on room air, with stable vital signs. Pt transfered back to [facility] via [facility]. Ambulance Personelle given report and discharge paperwork and [facility] paperwork. Report givent to YO Lucas at [facility]. pt id band and iv site removed without complications.
--- NOTE | 2020-06-07 15:24 | Diagnostic Imaging Report ---
Indication: Chest pain Technique: One view of the chest Comparison: 11/17/2019 Findings: Heart is enlarged. There is left basilar atelectasis. Lungs and pleural spaces are otherwise clear. Impression: Cardiomegaly. No acute process
--- NOTE | 2020-06-07 15:58 | Cardiology Report ---
APPROVED REPORT EKG Measurement Heart [id number] <Conclusion> Normal sinus rhythm Normal ECG
== END 2020-06-06 22:48 | disposition home or self-care (01) ==
LOC: EDBD 16:16 → EMR 16:45
DX: M25.50 Pain in unspecified joint (principal); R51.9 Headache, unspecified; R07.89 Other chest pain; I11.9 Hypertensive heart disease without heart failure; J44.9 Chronic obstructive pulmonary disease, unspecified; E11.9 Type 2 diabetes mellitus without complications; Q27.33 Arteriovenous malformation of digestive system vessel
CPT/HCPCS: 36415; 71045; 80053; 83880; 84484; 85025; 93005; 96374; 99284; J2930